=== PATIENT | male | born 1970 | race Caucasian/White ===

== ENCOUNTER 2021-08-13 14:00 | Outpatient (RCR) | payer OTHER, SELFPAY | END 2021-08-18 15:48 | disposition home or self-care (01) | LOC: HO.PT 14:00 | PROVIDERS: PCP Nurse Practitioner Primary Care; Visit Provider Emergency Medicine | DX: R29.898 Other symptoms and signs involving the musculoskeletal system (principal) | CPT/HCPCS: 97110; 97161; 97530; 97535 ==

== ENCOUNTER 2022-02-04 07:28 | Emergency (ER) | payer OTHER, SELFPAY ==
--- NOTE | 2022-02-04 | ECG_ITS ---
Test Reason : cp Blood Pressure : / mmHG Vent. Rate : 073 BPM Atrial Rate : 073 BPM P-R Int : 152 ms QRS Dur : 094 ms QT Int : 370 ms P-R-T Axes : 072 071 048 degrees QTc Int : 407 ms Normal sinus rhythm Normal ECG When compared with ECG of 26-JAN-2010 09:05, No significant change was found Referred By: Generic ED Physician Electronically Signed By:Miguel Mora
--- NOTE | ~2022-02-04 | XR_ITS ---
EXAMINATION: XR CHEST CLINICAL INFORMATION: Chest pain COMPARISON: February 24, 2019 TECHNIQUE: 2 views of the chest were obtained. FINDINGS: No significant abnormality is noted involving the heart, lungs, mediastinum, bony thorax or soft tissues. XR/XR chest 2V IMPRESSION: No acute disease.
[2022-02-04 07:40] VITALS: BP 136/98; PULSE 78; RESP 16; TEMP 36.6; O2SAT 99; BMI 36.0
[2022-02-04 07:52] LABS: MANUAL DIFF FLAG NO
[2022-02-04 07:54] LABS: Basophils Percent Auto 0.3 % (0-2); Eosinophils Absolute Auto 0.1 X10*3/uL (0.0-0.4); Eosinophils Percent Auto 1.2 % (0-4); Hematocrit 39.1 % (42.0-52.0); Hemoglobin 13.2 g/dl (14.0-18.0); Imm Gran Abs Auto 0.02 X10*3/uL (0.00-0.03); Imm Gran Pct Auto 0.3 % (0.0-0.4); Lymphocytes Absolute Auto 1.8 X10*3/uL (1.2-4.9); Lymphocytes Percent Auto 30.8 % (20-40); Mean Corpuscular HGB Conc 33.8 g/dl (31.0-36.0); Mean Corpuscular Hemoglobin 30.4 pg (27.0-33.0); Mean Corpuscular Volume 90.1 fL (80.0-98.0); Mean Platelet Volume 9.4 fL (9.4-12.4); Monocytes Absolute Auto 0.4 X10*3/uL (0.1-1.2); Monocytes Percent Auto 6.3 % (2-11); Neutrophils Absolute Auto 3.5 x10*3/uL (2.0-8.3); Neutrophils Percent Auto 61.1 % (45-73); Platelet Count 267 X10*3/uL (160-400); Red Blood Count 4.34 X10*6/uL (4.60-5.80); Red Cell Distribution Width 12.8 % (11.0-16.0); White Blood Count 5.7 X10*3/uL (4.8-10.8)
[2022-02-04 08:11] LABS: Anion Gap 12 (12-20); Blood Urea Nitrogen 15 mg/dL (9-16); Calcium 9.5 mg/dL (8.4-10.2); Carbon Dioxide 27 mmol/L (22-29); Chloride 104 mmol/L (96-108); Creatinine Clr Calc Pharmacy 88.7; Estimated Glomerular Filt Rate > 60; Glucose Random 107 mg/dL (60-115); Potassium 4.8 mmol/L (3.3-5.1); Sodium 138 mmol/L (135-145)
[2022-02-04 08:18] LABS: Troponin-I High Sensitivity < 3.5 ng/L (<3.5-35.0)
--- NOTE | 2022-02-04 08:22 | ED.ARRPALP ---
HPI - Arrhythmia/Palpitations General Chief Complaint: Arrhythmia/Palpitations Stated Complaint: palpations chest pain Time Seen by Provider: 02/04/22 08:20 Source: patient Mode of arrival: ambulatory Limitations: no limitations History of Present Illness MD complaint: palpitations (chest pain when touching chest) Onset (ago): week(s) (3) Duration: intermittent Severity: mild Context: other (stress with landlord, not related to exertion) Associated symptoms: chest pain and nausea Related Data Previous Rx's Medication Instructions Recorded cyclobenzaprine 10 mg tablet 10 mg PO TID PRN #14 tab 02/04/22 ondansetron 4 mg disintegrating 4 mg PO Q8H PRN #20 tab 02/04/22 tablet Allergies Allergy/AdvReac Type Severity Reaction Status Date / Time Seasonal Allergies Allergy Mild Nasal Verified 02/04/22 08:24 congestion Review of Systems Review of Systems: Constitutional : No Weight loss, No Fever, No Chills ENT/Mouth : No sore throat, No Rhinorrhea Eyes: No Eye Pain, No Swelling Cardiovascular : pos Chest Pain, no SOB, no Dyspnea on Exertion, No Orthopnea, No Edema, pos Palpitations Respiratory : No Cough, No Sputum Gastrointestinal : pos Nausea, No Vomiting, No Diarrhea, No abdominal Pain, No Hematochezia, No Melena Genitourinary : No Dysuria, No Urinary Frequency Musculoskeletal : No joint pain, No Myalgias, No Joint Swelling Skin : No Skin Lesions, No rash Neuro : No Weakness, No Numbness, No Dizziness, No Headache Psych : No Anxiety/Panic, No Depression Heme/Lymph: No Bruising, No Lymphadenopathy Endocrine : No Polyuria, No Polydipsia All other systems reviewed and are negative [facility] Past Medical History Attestation statement: The following information was validated with the patient. Medical History Asthma Bipolar 1 disorder Substance abuse Substance abuse in remission Social History Social History (Updated 02/04/22 @ 08:48 by Diana Pastor DO) Patient Tobacco Use Status: Current someday Tobacco user Use of substances other than those prescribed or required for medical reasons: No Advance Directives: No Advance Directives Information Provided: Yes Physical Exam Vital Signs: Vital Signs: Last Vital Signs Temp 97.9 F 02/04/22 07:40 Pulse 70 02/04/22 08:24 Resp 12 02/04/22 08:24 BP 131/72 02/04/22 08:24 Pulse Ox 97 02/04/22 08:24 BMI result Body Mass Index 36.0 Appearance: Alert. Oriented X3. No acute distress. Eyes: Pupils equal, round and reactive to light. ENT: Pharynx normal. Neck: Normal inspection. Neck supple. CVS: Normal heart rate and rhythm. Pulses normal. Chest: ttp along chest wall reproduces pain Respiratory: No respiratory distress. Breath sounds normal. Abdomen: Soft and nontender. Skin: Skin warm and dry. Normal skin color. Normal skin turgor. Extremities: No lower extremity edema. No calf ttp Neuro: Oriented X 3. No motor deficit. No sensory deficit. Course Course Course Narrative: asymptomatic COVID - unknown start date given this not a candidate for treatment MDM - Arrhythmia/Palpitations MDM Narrative Medical decision making narrative: 51 yo male with hx of asthma and bipolar comes in with atypical chest pain and palpitations x 3 weeks due to stress with landlord. No hypoxia, tachycardia or signs of DVT to suggest PE. Pain is atypical - EKG and trop negative with 3 weeks of symptoms. Chest pain is reproduceable. At this time anticipate DC home with PCP follow up and muscle relaxers Lab Data Result diagrams: 02/04/22 07:49 02/04/22 07:49 Labs: Lab Results 02/04/22 02/04/22 02/04/22 Range/Units 07:49 07:49 07:49 WBC 5.7 (4.8-10.8) X10*3/uL RBC 4.34 L (4.60-5.80) X10*6/uL Hgb 13.2 L (14.0-18.0) g/dl Hct 39.1 L (42.0-52.0) % MCV 90.1 (80.0-98.0) fL MCH 30.4 (27.0-33.0) pg MCHC 33.8 (31.0-36.0) g/dl RDW 12.8 (11.0-16.0) % Plt Count 267 (160-400) X10*3/uL MPV 9.4 (9.4-12.4) fL Immature Gran % (Auto) 0.3 (0.0-0.4) % Neut % (Auto) 61.1 (45-73) % Lymph % (Auto) 30.8 (20-40) % [place] % (Auto) 6.3 (2-11) % Eos % (Auto) 1.2 (0-4) % Baso % (Auto) 0.3 (0-2) % Lymph # (Auto) 1.8 (1.2-4.9) X10*3/uL [place] # (Auto) 0.4 (0.1-1.2) X10*3/uL Eos # (Auto) 0.1 (0.0-0.4) X10*3/uL Baso # (Auto) 0.0 (0.0-0.2) X10*3/uL Abs Immat Gran (auto) 0.02 (0.00-0.03) X10*3/uL Absolute Neuts (auto) 3.5 (2.0-8.3) x10*3/uL Absolute Nucleated RBC 0.000 (0.0-0.012) X10*3/uL Nucleated RBC % (auto) 0.0 (0.0-0.2) /100WBC Sodium 138 (135-145) mmol/L Potassium 4.8 (3.3-5.1) mmol/L Chloride 104 (96-108) mmol/L Carbon Dioxide 27 (22-29) mmol/L Anion Gap 12 (12-20) BUN 15 (9-16) mg/dL Creatinine 1.05 (0.5-1.4) mg/dL Estim Creat Clear Calc 88.7 Estimated GFR > 60 Random Glucose 107 (60-115) mg/dL Calcium 9.5 (8.4-10.2) mg/dL Troponin I High Sens < 3.5 (<3.5-35.0) ng/L COVID-19 (RADHA) (Negative) COVID-19 Clin Com 02/04/22 Range/Units 08:45 WBC (4.8-10.8) X10*3/uL RBC (4.60-5.80) X10*6/uL Hgb (14.0-18.0) g/dl Hct (42.0-52.0) % MCV (80.0-98.0) fL MCH (27.0-33.0) pg MCHC (31.0-36.0) g/dl RDW (11.0-16.0) % Plt Count (160-400) X10*3/uL MPV (9.4-12.4) fL Immature Gran % (Auto) (0.0-0.4) % Neut % (Auto) (45-73) % Lymph % (Auto) (20-40) % [place] % (Auto) (2-11) % Eos % (Auto) (0-4) % Baso % (Auto) (0-2) % Lymph # (Auto) (1.2-4.9) X10*3/uL [place] # (Auto) (0.1-1.2) X10*3/uL Eos # (Auto) (0.0-0.4) X10*3/uL Baso # (Auto) (0.0-0.2) X10*3/uL Abs Immat Gran (auto) (0.00-0.03) X10*3/uL Absolute Neuts (auto) (2.0-8.3) x10*3/uL Absolute Nucleated RBC (0.0-0.012) X10*3/uL Nucleated RBC % (auto) (0.0-0.2) /100WBC Sodium (135-145) mmol/L Potassium (3.3-5.1) mmol/L Chloride (96-108) mmol/L Carbon Dioxide (22-29) mmol/L Anion Gap (12-20) BUN (9-16) mg/dL Creatinine (0.5-1.4) mg/dL Estim Creat Clear Calc Estimated GFR Random Glucose (60-115) mg/dL Calcium (8.4-10.2) mg/dL Troponin I High Sens (<3.5-35.0) ng/L COVID-19 (RADHA) Positive A (Negative) COVID-19 Clin Com See Note ECG Data Attestation: I personally reviewed and interpreted this ECG as follows: ECG interpretation date: 02/04/22 ECG interpretation time: 08:23 Interpretation: Rate: 73 Rhythm: NSR [place]: normal Normal P waves. Normal PAYAL. Normal QRS complex. ST T wave : normal no ANSHU qTC: normal prior studies: no acute ischemia The study has been interpreted contemporaneously by me. . Discharge Plan Discharge Clinical Impression: Palpitations, Atypical chest pain, COVID-19 Patient Disposition: Home, Self-Care Instructions: Chest Pain (ED), Heart Palpitations (ED), COVID-19 (Coronavirus Disease 2019) (ED) Additional Instructions: return to ED for any worsening symptoms or concerns you tested positive for COVID today but are asymptomatic, no covid pneumonia on chest xray Prescriptions: New cyclobenzaprine 10 mg tablet 10 mg PO TID PRN (Reason: muscle spasm) Qty: 14 0RF ondansetron 4 mg tablet,disintegrating 4 mg PO Q8H PRN (Reason: nausea and vomiting) Qty: 20 0RF Referrals: Freda Lane, [employer] [Primary Care Provider] - 2 days (if not better)
[2022-02-04 08:24] VITALS: BP 131/72; PULSE 70; RESP 12; O2SAT 97
[2022-02-04] MEDS: Cyclobenzaprine HCl 10 MG TABLET PO (08:49)
[2022-02-04 09:08] LABS: COVID-19 Test Positive (Negative); IDNOW Serial# 16C4AD1C
--- NOTE | 2022-02-04 09:12 | MHC.CM.ED ---
Received notification from registration that patient interested in completing HCP. HCP completed, signed and witnessed. Original given to patient. Copy placed in chart. Continue to monitor for d/c needs.
[2022-02-04 09:40] VITALS: BP 144/71; PULSE 76; RESP 18; O2SAT 98
--- NOTE | 2022-02-04 09:41 | PC.NURSE ---
nad, skin wpd, sr on monitor, denies any symptoms or pain at this timne. no sob
== END 2022-02-04 09:43 | disposition home or self-care (01) ==
PROVIDERS: Emergency Provider Emergency Medicine; PCP Nurse Practitioner Primary Care
DX: U07.1 COVID-19 (principal); R07.89 Other chest pain; R00.2 Palpitations; J45.909 Unspecified asthma, uncomplicated
CPT/HCPCS: 36415; 71046; 80048; 84484; 85025; 87635; 93005; 99283; 99284

== ENCOUNTER 2023-09-14 11:03 | Outpatient (REF) | payer OTHER, SELFPAY ==
--- NOTE | ~2023-09-14 | XR_ITS ---
EXAMINATION: XR LUMBOSACRAL SPINE CLINICAL INFORMATION: Atraumatic left low back pain. COMPARISON: None available. TECHNIQUE: Three views of the lumbosacral spine. FINDINGS: No evidence of acute compression deformity or traumatic subluxation. Mild intervertebral disc height loss and facet arthropathy at L5-S1. SI joints are symmetric. No significant paraspinal soft tissue abnormality. XR/XR lumbar spine 2-3V IMPRESSION: 1. No acute compression deformity or malalignment. 2. Mild lumbar spondylosis at L5-S1.
--- NOTE | ~2023-09-14 | XR_ITS ---
EXAMINATION: XR ELBOW, LEFT CLINICAL INFORMATION: Pain. COMPARISON: None available. TECHNIQUE: AP, lateral, and oblique views of the left elbow. FINDINGS: No acute fracture or subluxation. Prominent multicompartment chronic appearing bony productive changes. No osseous erosions. No chondrocalcinosis. No joint effusion. XR/XR elbow LT min 3V IMPRESSION: 1. No acute fracture or subluxation. 2. Prominent multicompartment chronic appearing bony productive changes that could be seen with osteoarthritis.
[2023-09-14 14:10] LABS: Appearance Urine Clear; Color Urine Yellow; Glucose Urine UA Negative (Negative); Leukocyte Esterase Urine Negative (Negative); Nitrite Urine Negative (Negative); Specific Gravity - Urine 1.025 (1.005-1.025); UMIC TRIGGER UA YES; Urine Blood Small (1+) (Negative); Urine Ketones Trace mg/dL (Negative); Urine Protein 100 (2+) mg/dL (Neg-Trace)
[2023-09-14 14:16] LABS: Bacteria Urine None Seen (None Seen); Hyaline Casts Urine 0-2 /LPF (0-2); Squamous Epithelial Cell Urine 0-2 /HPF (0-2); WBC Urine 0-5 /HPF (0-5)
[2023-09-14 14:40] LABS: Creatinine Urine 262.13 mg/dL
[2023-09-14 15:01] LABS: Anion Gap 15 (12-20); Blood Urea Nitrogen 16 mg/dL (9-16); Calcium 9.7 mg/dL (8.4-10.2); Carbon Dioxide 26 mmol/L (22-29); Chloride 103 mmol/L (96-108); Estimated Glomerular Filt Rate > 60; Glucose Random 98 mg/dL (60-115); Potassium 4.7 mmol/L (3.3-5.1); Sodium 139 mmol/L (135-145)
[2023-09-14 15:15] LABS: Microalbum/Creatinine Ratio Ur 185.7 ug/mg cr (<30)
== END 2023-09-14 11:04 | disposition home or self-care (01) ==
LOC: HO.HHCL 11:03
PROVIDERS: Visit Provider Nurse Practitioner Primary Care
DX: I10 Essential (primary) hypertension (principal); R20.0 Anesthesia of skin; M25.522 Pain in left elbow; M54.50 Low back pain, unspecified
CPT/HCPCS: 36415; 72100; 73080; 80048; 81001; 82043; 82570

== ENCOUNTER 2023-09-15 14:32 | Outpatient (REF) | payer OTHER, SELFPAY ==
[2023-09-15 17:16] LABS: Appearance Urine Turbid; Color Urine Yellow; Glucose Urine UA Negative (Negative); Leukocyte Esterase Urine Negative (Negative); Nitrite Urine Negative (Negative); Specific Gravity - Urine >= 1.030 (1.005-1.025); UMIC TRIGGER UA YES; Urine Blood Negative (Negative); Urine Ketones Negative (Negative); Urine Protein 100 (2+) mg/dL (Neg-Trace)
[2023-09-15 17:20] LABS: Bacteria Urine None Seen (None Seen); Hyaline Casts Urine 0-2 /LPF (0-2); Squamous Epithelial Cell Urine 0-2 /HPF (0-2); WBC Urine 0-5 /HPF (0-5)
== END 2023-09-15 14:33 | disposition home or self-care (01) ==
LOC: HO.HHCL 14:32
PROVIDERS: Visit Provider Nurse Practitioner Primary Care
DX: R31.9 Hematuria, unspecified (principal)
CPT/HCPCS: 81001

== ENCOUNTER 2024-01-12 11:34 | Outpatient (REF) | payer OTHER, SELFPAY | END 2024-01-12 11:35 | disposition home or self-care (01) | LOC: HO.HHCL 11:34 | PROVIDERS: Visit Provider Nurse Practitioner Primary Care | DX: R31.9 Hematuria, unspecified (principal) | CPT/HCPCS: 87086 ==

== ENCOUNTER 2024-03-10 11:13 | Outpatient (REF) | payer OTHER, SELFPAY ==
[2024-03-10 13:02] LABS: MANUAL DIFF FLAG NO
[2024-03-10 13:08] LABS: Basophils Percent Auto 0.5 % (0-2); Eosinophils Absolute Auto 0.1 X10*3/uL (0.0-0.4); Eosinophils Percent Auto 1.3 % (0-4); Hematocrit 37.1 % (42.0-52.0); Hemoglobin 12.6 g/dl (14.0-18.0); Imm Gran Abs Auto 0.02 X10*3/uL (0.00-0.03); Imm Gran Pct Auto 0.3 % (0.0-0.4); Lymphocytes Absolute Auto 2.1 X10*3/uL (1.2-4.9); Lymphocytes Percent Auto 33.4 % (20-40); Mean Corpuscular Hemoglobin 30.8 pg (27.0-33.0); Mean Corpuscular Volume 90.7 fL (80.0-98.0); Mean Platelet Volume 10.2 fL (9.4-12.4); Monocytes Absolute Auto 0.3 X10*3/uL (0.1-1.2); Monocytes Percent Auto 5.2 % (2-11); Neutrophils Absolute Auto 3.8 x10*3/uL (2.0-8.3); Neutrophils Percent Auto 59.3 % (45-73); Platelet Count 276 X10*3/uL (160-400); Red Blood Count 4.09 X10*6/uL (4.60-5.80); Red Cell Distribution Width 13.3 % (11.0-16.0); White Blood Count 6.4 X10*3/uL (4.8-10.8)
[2024-03-10 13:17] LABS: Appearance Urine Clear; Color Urine Yellow; Glucose Urine UA Negative (Negative); Leukocyte Esterase Urine Negative (Negative); Nitrite Urine Negative (Negative); PH 5.5 (5.0-9.0); Specific Gravity - Urine 1.025 (1.005-1.025); UMIC TRIGGER UA YES; Urine Blood Negative (Negative); Urine Ketones Negative (Negative); Urine Protein 30 (1+) mg/dL (Neg-Trace)
[2024-03-10 13:26] LABS: Bacteria Urine None Seen (None Seen); Hyaline Casts Urine 0-2 /LPF (0-2); RBC Urine 0-2 /HPF (0-2); Squamous Epithelial Cell Urine 0-2 /HPF (0-2); WBC Urine 0-5 /HPF (0-5)
[2024-03-10 13:34] LABS: Cholesterol 187 mg/dL (<200); HDL Cholesterol 59 mg/dL (>40); LDL Cholesterol Calculated 109 mg/dL (<100); Triglycerides 95 mg/dL (<150)
[2024-03-13 12:48] LABS: HCV Log PCR <1.18 NOT DETECTED Log IU/mL (NOT DETECTED); HepC Viral Load <15 NOT DETECTED IU/mL (NOT DETECTED)
== END 2024-03-10 11:14 | disposition home or self-care (01) ==
LOC: HO.HHCL 11:13
PROVIDERS: Visit Provider Nurse Practitioner Primary Care
DX: Z00.00 Encounter for general adult medical examination without abnormal findings (principal); E78.00 Pure hypercholesterolemia, unspecified; R31.9 Hematuria, unspecified; Z86.19 Personal history of other infectious and parasitic diseases
CPT/HCPCS: 36415; 80061; 81001; 85025; 87522

== ENCOUNTER 2024-03-24 11:45 | Emergency (ER) | payer OTHER, SELFPAY ==
[2024-03-24 12:05] VITALS: BP 109/60; PULSE 70; RESP 18; TEMP 36.6; O2SAT 98; BMI 33.6
--- NOTE | 2024-03-24 12:05 | ED.GENADULT ---
HPI - General Adult General Chief complaint: General Medical Stated complaint: kidney issues Source: patient Mode of arrival: ambulatory Limitations: no limitations History of Present Illness ED Provider: Yanna Waite PA-C HPI narrative: Patient is a 54 year old assigned male at with no reported medical history presenting to the emergency department today with left flank pain. Patient states that he has been having left flank pain over the last 5 months that he has gotten multiple lab draws for but the place he gets these done keep misplacing them. Patient denies any dizziness, lightheadedness, abdominal pain, nausea, vomiting, fever, chills, blurry vision, double vision, loss of vision, chest pain, difficulty breathing, shortness of breath, back pain, night sweats, pain with urination, increased urinary frequency, increased urinary urgency, blood in his urine or stool, syncope or a near syncopal episode, recent trauma or falls, bowel incontinence, bladder incontinence, or any other complaints at this time. Onset (ago): month(s) (5) Location: left (flank) Radiation: non-radiation Severity: mild Severity scale (1-10): 3 Relieving factors: none Exacerbating factors: none Associated symptoms: denies other symptoms Treatments prior to arrival: none Related Data Previous Rx's ?Medication ?Instructions ?Recorded cyclobenzaprine 10 mg tablet 10 mg PO TID PRN muscle spasm #14 02/04/22 tabs ondansetron 4 mg disintegrating 4 mg PO Q8H PRN nausea and 02/04/22 tablet vomiting #20 tabs Allergies Allergy/AdvReac Type Severity Reaction Status Date / Time Seasonal Allergies Allergy Mild Nasal Verified 03/24/24 12:05 congestion Review of Systems Constitutional: Constitutional: Reports no additional constitutional complaints, Denies chills, Denies fever(s) and Denies night sweats Eyes: Eyes: Reports no additional eye complaints, Denies blurry vision, Denies change in vision, Denies diplopia, Denies eye discharge, Denies loss of vision and Denies eye pain ENT: Denies dizziness Cardiovascular: Cardiovascular: Reports no additional cardiovascular complaints, Denies chest pain, Denies lightheadedness, Denies Loss of Consciousness and Denies dyspnea Respiratory: Respiratory: Reports no additional respiratory complaints and Denies dyspnea Gastrointestinal: Gastrointestinal: Reports no additional gastrointestinal complaints, Denies abdominal pain, Denies melena, Denies hematochezia, Denies change in bowel habits and Denies change in stool character Genitourinary: Genitourinary: Reports no additional male genitourinary complaints, Denies hematuria, Denies oliguria, Denies difficulty urinating, Denies dysuria, Reports flank pain (left), Denies urinary frequency, Denies urinary hesitancy, Denies urinary incontinence and Denies urinary urgency Musculoskeletal: Musculoskeletal: Reports no additional musculoskeletal complaints, Denies numbness and Denies tingling Neurologic: Denies dizziness, Denies loss of vision, Denies numbness and Denies tingling Psychiatric: Psychiatric: Reports no additional psychiatric complaints Endocrine: Endocrine: Reports no additional endocrine complaints Hematologic/Lymphatic: Hematologic/Lymphatic: Reports no additional hematologic/lymphatic complaints Allergic/Immunologic: Allergic/Immunologic: Reports no additional allergic/immunologic complaints PMFSH Past Medical History Attestation statement: The following information was validated with the patient. Source: old records reviewed and nursing notes reviewed Medical History Substance abuse in remission Substance abuse Bipolar 1 disorder Asthma Social History Social History Patient Tobacco Use Status: Current someday Tobacco user Advance Directives: Yes Advance Directives on File: Yes Advance Directives Date on File: 02/04/22 Do you have a plan to hurt others: No Plan Physical Exam ED Vital Signs: Vital Signs - 24 hr 03/24/24 12:05 Temperature 97.9 F Pulse Rate 70 Respiratory Rate 18 Blood Pressure 109/60 Pulse Oximetry 98 Oxygen Delivery Method Room Air BMI result Body Mass Index 33.6 Const General: cooperative, no acute distress, alert and awake Nutritional Appearance: well nourished Orientation/consciousness: patient oriented x3 Limitations: no limitations HENMT Head: Yes normal to inspection and Yes atraumatic Ears: hearing grossly normal bilaterally and external ears normal General nose exam: Normal external nose present, no nasal discharge noted and no epistaxis Face and sinus: Yes normal facial exam, No abrasion and No laceration Mouth: Normal oral and palatal mucosa present, no drooling and no muffled voice Eyes General: appearance normal, both eyes and all related structures Periorbital: periorbital findings normal Eyelids: Yes eyelids normal Conjunctivae: conjunctivae normal Pupils: Equal, round and reactive pupils present EOM: EOMs intact bilaterally Neck Neck: Yes normal visual inspection, Yes full ROM and Yes no lymphadenopathy Chest Chest palpation & inspection: normal inspection of the chest Resp Effort & Inspection: normal respiratory effort and able to speak in complete sentences GI Inspection: Yes normal to inspection Neuro General: patient oriented x3 and moves all extremities Cranial nerves: Yes Equal, round and reactive pupils present Cognition (Neuro): normal cognition Motor exam (neuro): 5/5 motor strength present throughout Sensory Exam: Normal double simultaneous stimulation for sensation Coordination: [id number]-wl-[id number] test normal Extrem General: Yes normal to inspection, Yes full ROM and Yes capillary refill normal Psych Appearance: grossly normal Mental Status: mental status grossly normal Affect: normal affect Attitude: cooperative Thought process: Normal thought process present Thought content: Normal thought content present Insight: Good insight present (Psych) Course Course Course Narrative: RME performed by Yanna Waite PA-C. Patient is a 54 year old assigned male at presenting to the emergency department with left kidney pain. Patient states that he is having kidney issues ever since being on a medication to stop smoking (not chantix). Detailed physical exam and review of systems are deferred to the life science research assistant. Labs ordered. Patient placed back in the waiting room pending room availability and results. Medical Decision Making Medical Decision Making MDM Narrative: Patient is a 54 year old assigned male at with no reported medical history presenting to the emergency department today with left flank pain. Patient's limited physical exam performed in triage was unremarkable. Patient's blood work was unremarkable. Patient left the department without completing treatment. Patient left the department before myself or any of the other emergency department clinicians could explain to or review with the patient; physical exam findings, test results, need or lack there of for additional testing, need or lack there of for a procedure to be performed, need or lack there of for hospital admission / transfer, need or lack there of for prescription medication, treatment options, or a treatment plan. Differential Diagnosis Differential Diagnoses: The differential diagnosis associated with the presentation includes Kidney stone Flank pain Admission/Observation Consideration of admission/observation: Escalation of care including admission/observation considered Patient would have been admitted to the hospital had he completed his work up and it had any findings where hospital admission was appropriate, his clinical presentation warranted hospital admission, had myself or any other emergency college or university department head had the ability to discuss need or lack there of for hospital admission, and the patient hadn't left the department without completing treatment. Lab Data [facility] Lab Attestation statement: I reviewed the patient's lab results. My interpretation of these results are in the [facility] Rationale portion of this note. 03/24/24 12:47 03/24/24 12:47 Labs: Lab Results 03/24/24 Range/Units 12:47 WBC 8.9 (4.8-10.8) X10*3/uL RBC 4.01 L (4.60-5.80) X10*6/uL Hgb 12.8 L (14.0-18.0) g/dl Hct 35.9 L (42.0-52.0) % MCV 89.5 (80.0-98.0) fL MCH 31.9 (27.0-33.0) pg MCHC 35.7 (31.0-36.0) g/dl RDW 13.3 (11.0-16.0) % Plt Count 246 (160-400) X10*3/uL MPV 9.4 (9.4-12.4) fL Immature Gran % (Auto) 0.2 (0.0-0.4) % Neut % (Auto) 56.7 (45-73) % Lymph % (Auto) 35.1 (20-40) % [place] % (Auto) 6.4 (2-11) % Eos % (Auto) 1.1 (0-4) % Baso % (Auto) 0.5 (0-2) % Lymph # (Auto) 3.1 (1.2-4.9) X10*3/uL [place] # (Auto) 0.6 (0.1-1.2) X10*3/uL Eos # (Auto) 0.1 (0.0-0.4) X10*3/uL Baso # (Auto) 0.0 (0.0-0.2) X10*3/uL Abs Immat Gran (auto) 0.02 (0.00-0.03) X10*3/uL Absolute Neuts (auto) 5.0 (2.0-8.3) x10*3/uL Absolute Nucleated RBC 0.000 (0.0-0.012) X10*3/uL Nucleated RBC % (auto) 0.0 (0.0-0.2) /100WBC Sodium 139 (135-145) mmol/L Potassium 4.4 (3.3-5.1) mmol/L Chloride 107 (96-108) mmol/L Carbon Dioxide 26 (22-29) mmol/L Anion Gap 10 L (12-20) BUN 20 H (9-16) mg/dL Creatinine 0.94 (0.5-1.4) mg/dL Estim Creat Clear Calc 89.2 Estimated GFR > 60 Random Glucose 91 (60-115) mg/dL Calcium 9.4 (8.4-10.2) mg/dL Magnesium 1.9 (1.6-2.6) mg/dL Total Bilirubin 0.4 (0.0-1.0) mg/dL AST 31 (5-37) U/L ALT 51 H (0-40) U/L Alkaline Phosphatase 56 (39-117) U/L Total Protein 7.0 (6.5-8.0) g/dL Albumin 4.4 (3.5-5.0) g/dL Urine Color Yellow Urine Appearance Clear Urine pH 5.5 (5.0-9.0) Ur Specific [place] 1.025 (1.005-1.025) Urine Protein 30 (1+) H (Neg-Trace) mg/dL Urine Glucose (UA) Negative (Negative) mg/dL Urine Ketones Trace (Negative) mg/dL Urine Blood Negative (Negative) Urine Nitrite Negative (Negative) Ur Leukocyte Esterase Negative (Negative) Urine RBC 0-2 (0-2) /HPF Urine WBC 0-5 (0-5) /HPF Ur Squamous Epith Cells 0-2 (0-2) /HPF Urine Bacteria None Seen (None Seen) Hyaline Casts 0-2 (0-2) /LPF Discharge Plan Discharge Clinical Impression: Acute flank pain Patient Disposition: Left W/O Completing Treatment Prescriptions: No Action cyclobenzaprine 10 mg tablet 10 mg PO TID PRN (Reason: muscle spasm) Qty: 14 0RF ondansetron 4 mg tablet,disintegrating 4 mg PO Q8H PRN (Reason: nausea and vomiting) Qty: 20 0RF Discharge Date/Time: 03/24/24 13:49
[2024-03-24 12:51] LABS: MANUAL DIFF FLAG NO
[2024-03-24 12:52] LABS: Basophils Percent Auto 0.5 % (0-2); Eosinophils Absolute Auto 0.1 X10*3/uL (0.0-0.4); Eosinophils Percent Auto 1.1 % (0-4); Hematocrit 35.9 % (42.0-52.0); Hemoglobin 12.8 g/dl (14.0-18.0); Imm Gran Abs Auto 0.02 X10*3/uL (0.00-0.03); Imm Gran Pct Auto 0.2 % (0.0-0.4); Lymphocytes Absolute Auto 3.1 X10*3/uL (1.2-4.9); Lymphocytes Percent Auto 35.1 % (20-40); Mean Corpuscular HGB Conc 35.7 g/dl (31.0-36.0); Mean Corpuscular Hemoglobin 31.9 pg (27.0-33.0); Mean Corpuscular Volume 89.5 fL (80.0-98.0); Mean Platelet Volume 9.4 fL (9.4-12.4); Monocytes Absolute Auto 0.6 X10*3/uL (0.1-1.2); Monocytes Percent Auto 6.4 % (2-11); Neutrophils Percent Auto 56.7 % (45-73); Platelet Count 246 X10*3/uL (160-400); Red Blood Count 4.01 X10*6/uL (4.60-5.80); Red Cell Distribution Width 13.3 % (11.0-16.0); White Blood Count 8.9 X10*3/uL (4.8-10.8)
[2024-03-24 12:56] LABS: Appearance Urine Clear; Color Urine Yellow; Glucose Urine UA Negative (Negative); Leukocyte Esterase Urine Negative (Negative); Nitrite Urine Negative (Negative); PH 5.5 (5.0-9.0); Specific Gravity - Urine 1.025 (1.005-1.025); UMIC TRIGGER UACC YES; Urine Blood Negative (Negative); Urine Ketones Trace mg/dL (Negative); Urine Protein 30 (1+) mg/dL (Neg-Trace)
[2024-03-24 12:59] LABS: Bacteria Urine None Seen (None Seen); Hyaline Casts Urine 0-2 /LPF (0-2); RBC Urine 0-2 /HPF (0-2); Squamous Epithelial Cell Urine 0-2 /HPF (0-2); WBC Urine 0-5 /HPF (0-5)
[2024-03-24 13:07] LABS: Alanine Aminotransferase 51 U/L (0-40); Albumin Level 4.4 g/dL (3.5-5.0); Alkaline Phosphatase 56 U/L (39-117); Anion Gap 10 (12-20); Aspartate Amino Transferase 31 U/L (5-37); Bilirubin Total 0.4 mg/dL (0.0-1.0); Blood Urea Nitrogen 20 mg/dL (9-16); Calcium 9.4 mg/dL (8.4-10.2); Carbon Dioxide 26 mmol/L (22-29); Chloride 107 mmol/L (96-108); Creatinine Clr Calc Pharmacy 89.2; Estimated Glomerular Filt Rate > 60; Glucose Random 91 mg/dL (60-115); Magnesium 1.9 mg/dL (1.6-2.6); Potassium 4.4 mmol/L (3.3-5.1); Sodium 139 mmol/L (135-145)
--- NOTE | 2024-03-24 13:49 | PC.NURSE ---
Called multiple times- no answer-
--- OUTSIDE RECORDS SUMMARY | 2024-03-30 06:44 | XMS_ITS | Continuity of Care Document ---
Author Organization [facility] Address [address] [place] [id number]- Care Team Providers Care Machine Adjuster Helper Name Role Phone Freda Lane NP Primary Care Physician [phone] Encounter [facility] Date(s): 01/06/24 - 02/05/24 [facility] [address] [place] [id number] Attending Physician: Molly Trevino Admitting Physician: Molly Trevino Referring Physician: Molly Trevino Medications Albuterol (Eqv-ProAir HFA) 90 mcg/inh inhalation aerosol 2 puffs, Inhalation, Every 6 hours, 0 Refills, Maintenance, 01/06/24 13:09:00 EDT, Partial fill upon patient request if the prescription is for a schedule II opioid drug. Start Date: 01/06/24 Status: Ordered Golytely - oral powder for reconstitution See Instructions, Per instructions from GI., # 4,000 mL, 0 Refills, Maintenance, 01/06/24 13:26:00 EDT, [facility]/pharmacy #[id number], Partial fill upon patient request if the prescription is for a schedule II opioid drug., Per instructions from GI. Start Date: 01/06/24 Status: Ordered Loratadine By Mouth, Daily, Refills 0, Maintenance, 01/06/24 13:09:00 EDT, Partial fill upon patient request if the prescription is for a schedule II opioid drug. Start Date: 01/06/24 Status: Ordered Suboxone 8 mg-2 mg sublingual film 2 film, Sublingual, Daily, 0 Refills, Maintenance, 01/06/24 13:09:00 EDT, Partial fill upon patientrequest if the prescription is for a schedule II opioid drug. Start Date: 01/06/24 Status: Ordered Vitamin B12 50 mcg oral tablet 1 tablet = 50 mcg, By Mouth, Daily, 0 Refills, Maintenance, 01/06/24 13:09:00 EDT, Partial fill upon patient request if the prescription is for a schedule II opioid drug. Start Date: 01/06/24 Status: Ordered Patient Care team information Care Team Personnel Name: Freda Laen NP Position: [facility] Outreach Member Role: PCP Address: Address: [address] [place] [address]- Care Team Related Persons Name: KM SALTER Address: home [address] [place] [address]
== END 2024-03-24 13:49 | disposition left against medical advice (07) ==
PROVIDERS: Physician Assistant Medical; Emergency Provider Emergency Medicine; PCP Nurse Practitioner Primary Care
DX: R10.9 Unspecified abdominal pain (principal); Z79.899 Other long term (current) drug therapy
CPT/HCPCS: 36415; 80053; 81001; 83735; 85025; 99282; 99283

== ENCOUNTER 2024-05-01 11:03 | Outpatient (REF) | payer OTHER, SELFPAY ==
[2024-05-01 13:20] LABS: MANUAL DIFF FLAG NO
[2024-05-01 13:48] LABS: Basophils Percent Auto 0.5 % (0-2); Eosinophils Absolute Auto 0.1 X10*3/uL (0.0-0.4); Hematocrit 37.6 % (42.0-52.0); Hemoglobin 12.8 g/dl (14.0-18.0); Imm Gran Abs Auto 0.02 X10*3/uL (0.00-0.03); Imm Gran Pct Auto 0.3 % (0.0-0.4); Immature Retic Fraction 12.2 % (2.3-13.4); Lymphocytes Absolute Auto 2.2 X10*3/uL (1.2-4.9); Lymphocytes Percent Auto 35.2 % (20-40); Monocytes Absolute Auto 0.3 X10*3/uL (0.1-1.2); Neutrophils Absolute Auto 3.6 x10*3/uL (2.0-8.3); Platelet Count 268 X10*3/uL (160-400); Red Blood Count 4.13 X10*6/uL (4.60-5.80); Red Cell Distribution Width 12.9 % (11.0-16.0); Retic HGB Equivalent 34.9 pg (30.0-35.0); Reticulocyte Percent 1.4 % (0.5-1.8); Reticulocytes Absolute 0.057 X10*6/uL (0.026-0.095); White Blood Count 6.2 X10*3/uL (4.8-10.8)
[2024-05-01 14:32] LABS: Erythrocyte Sedimentation Rate 5 MM/HR (0-15)
[2024-05-01 14:36] LABS: Alanine Aminotransferase 37 U/L (0-40); Albumin Level 4.5 g/dL (3.5-5.0); Alkaline Phosphatase 47 U/L (39-117); Aspartate Amino Transferase 27 U/L (5-37); Bilirubin Direct 0.2 mg/dL (0.0-0.5); Bilirubin Total 0.4 mg/dL (0.0-1.0); C Reactive Protein 0.27 mg/dL (< or = 0.50); Ferritin 270 ng/mL (20-250); Iron 119 mcg/dL (45-160); Percent Iron Saturation 46 % (15-50); Total Iron Binding Capacity 257 mcg/dL (228-428); Total Protein 7.1 g/dL (6.5-8.0); Unsaturated Iron Binding 138 ug/dL
[2024-05-02 10:29] LABS: Transferrin 227 mg/dL (188-341)
== END 2024-05-01 11:04 | disposition home or self-care (01) ==
LOC: HO.HHCL 11:03
PROVIDERS: Visit Provider Nurse Practitioner Primary Care
DX: D64.9 Anemia, unspecified (principal)
CPT/HCPCS: 36415; 80076; 82728; 83540; 84466; 85025; 85045; 85652; 86140

== ENCOUNTER 2025-04-05 11:23 | Outpatient (REF) | payer OTHER, SELFPAY ==
--- OUTSIDE RECORDS SUMMARY | 2025-04-05 12:11 | XMS_ITS | Encounter Summary ---
Author Organization [employer] Address [address] [facility] 7t [place] [address] Care Team Providers Care Mailroom Messenger Name Role Phone Freda Lane Primary Care Provider [phone] Reason for Visit * Reason Comments Med Refill Encounter Details Date Type Department Care Team ([facility] st Contact Info) Description 09/23/2023 Refill [facility] CHC MED & PEDS [address] [place], [place] [phone] Latanya Holder MD 230 [place] [address] Uncomplicated opioid dependence (CMS/HCC) Social History Tobacco Use Types Packs/Day Years Used Date Smoking Tobacco: Some Days Cigarettes Cigars Smokeless Tobacco: Never Alcohol Use Standard Drinks/Week Comments Not Currently 0 (1 standard drink = 0.6 oz pur e alcohol) Housing Stability Answer Date Recorded What is your housing situation today? I have hector healy 08/17/[address] you li ve. Do you have problems with any of the following? None of the above 08/17/2023 Food Insecurity Answer Date Recorded Within the past 12 months, y ou worried that your food would run out before you got money to buy more: Never True 08/17/2023 Within the past 12 months,th e food you bought just didn't last and you didn't have enough money to get more: Never True Transportation Answer Date Recorded In the past 12 months, has l ack of transportation kept you from medical appts, meetings, work or from getting things needed for daily living? No 08/17/2023 Utilities Answer Date Recorded In the past 12 months, has t he electric, gas, oil or water company threatened to shut off services in your home? No 08/17/2023 Depression Answer Date Recorded Patient Health Questionnaire-2 Score 0 08/17/2023 Sex and Gender Information Value Date Recorded Sex Assigned at Male 08/03/2022 10:21 AM EDT Legal Sex Male 10:21 AM EDT Gender Identity Male 08/03/2022 10:21 AM EDT Sexual Orientation Straight 08/03/2022 10 :21 AM EDT documented as of this encounter Plan of Treatment Upcoming Encounters Date Type Department Care Team (Late st Contact Info) Description 06/28/2025 1:30 PM EDT Clinical Support [facility] MEDICINE 230 [place] [address] Bryan Noland RN [address] [place] [address] documented as of this encounter Visit Diagnoses Diagnosis Uncomplicated opioid dependence (CMS/HCC) documented in this encounter Care Teams Mailroom Messenger Relationship Specialty Start Date End Date Freda Lane ANP [address] [place] [address] PCP - General Family Medicine 06/03/20 documented as of this encounter
--- OUTSIDE RECORDS SUMMARY | 2025-04-05 12:11 | XMS_ITS | Clinical Summary ---
Author Organization [facility], Address [address] [place] [address] [place] [address] Phone Care Team Providers Care Commercial Lender Name Role Phone Freda Lane NP Primary Care Provider [phone] Social History Tobacco Use Types Packs/Day Years Used Date Smoking Tobacco: Never Assessed Sex and Gender Information Value Date Recorded Sex Assigned at Not on file Legal Sex Male 9:32 AM EST Gender Identity Not on file Sexual Orientation Not on file Plan of Treatment Health Maintenance Due Date Last Done Comments Hepatitis B Vaccine (1 of 3 - 19+ 3-dose series) 03/03 Colorectal Cancer Screening: Annual FOBT 2018 Colorectal Cancer Screening: Colonoscopy 2018 Colorectal Cancer Screening: Sigmoidoscopy 2018 Pneumococcal Vaccine: 50+ Years (1 of 1 - PCV) 019 Influenza Vaccine (#1) 2025 Insurance ., [address] [place] [address] [facility] One Care Dual SNP ([id number]) [place] [id number] Care Teams Commercial Lender Relationship Specialty Start Date End Date Freda Lane NP PCP - General Nurse Practitioner 10/13/23
[2025-04-05 13:14] LABS: MANUAL DIFF FLAG NO
[2025-04-05 13:29] LABS: Hematocrit 38.6 % (42.0-52.0); Hemoglobin 13.4 g/dl (14.0-18.0); Imm Gran Abs Auto 0.02 X10*3/uL (0.00-0.03); Imm Gran Pct Auto 0.3 % (0.0-0.4); Lymphocytes Absolute Auto 1.8 X10*3/uL (1.2-4.9); Mean Corpuscular HGB Conc 34.7 g/dl (31.0-36.0); Mean Corpuscular Hemoglobin 31.2 pg (27.0-33.0); Mean Corpuscular Volume 89.8 fL (80.0-98.0); NRBC Abs Auto 0.000 X10*3/uL (0.0-0.012); NRBC Pct Auto 0.0 /100WBC (0.0-0.2); Platelet Count 275 X10*3/uL (160-400); Red Blood Count 4.30 X10*6/uL (4.60-5.80); White Blood Count 7.9 X10*3/uL (4.8-10.8)
[2025-04-05 13:59] LABS: Alanine Aminotransferase 31 U/L (0-40); Albumin Level 4.7 g/dL (3.5-5.0); Alkaline Phosphatase 56 U/L (39-117); Anion Gap 11 (12-20); Aspartate Amino Transferase 38 U/L (5-37); Blood Urea Nitrogen 16 mg/dL (9-16); Calcium 8.9 mg/dL (8.4-10.2); Carbon Dioxide 25 mmol/L (22-29); Chloride 106 mmol/L (96-108); Estimated Glomerular Filt Rate > 60; Iron 95 mcg/dL (45-160); Percent Iron Saturation 38 % (15-50); Potassium 4.5 mmol/L (3.3-5.1); Sodium 137 mmol/L (135-145); Total Iron Binding Capacity 251 mcg/dL (228-428); Total Protein 7.0 g/dL (6.5-8.0); Unsaturated Iron Binding 156 ug/dL; ~Hepatitis A Antibody IgG 1.94 S/CO (0.00-0.99)
== END 2025-04-05 11:24 | disposition home or self-care (01) ==
LOC: HO.HHCL 11:23
PROVIDERS: PCP Nurse Practitioner Primary Care; Referring Provider Family Medicine; Visit Provider Nurse Practitioner Primary Care
DX: F11.20 Opioid dependence, uncomplicated (principal)
CPT/HCPCS: 36415; 80053; 83540; 85025; 86708

== ENCOUNTER 2025-04-13 11:01 | Outpatient (REF) | payer OTHER, SELFPAY ==
--- OUTSIDE RECORDS SUMMARY | 2025-04-13 11:38 | XMS_ITS | Encounter Summary ---
Author Organization [employer] Address [address] 7t [place] [address] Care Team Providers Care Indigo Vat Tender Cloth Name Role Phone Freda Lane Primary Care Provider [phone] Reason for Visit * Reason Comments Med Refill Encounter Details Date Type Department Care Team ([facility] st Contact Info) Description 09/23/2023 Refill [facility] CHC MED & PEDS [address] [place], [place] [phone] Latanya Holder MD 230 [place] [address] Uncomplicated opioid dependence (CMS/HCC) Social History Tobacco [...] Description 06/28/2025 1:30 PM EDT Clinical Support [facility] MEDICINE 230 [place] [address] Bryan Noland RN [address] [place] [address] documented as of this encounter Visit Diagnoses Diagnosis Uncomplicated opioid dependence (CMS/HCC) documented in this encounter Care Teams Indigo Vat Tender Cloth Relationship Specialty Start Date End Date Freda Lane ANP [address] [place] [address] PCP - General Family Medicine 06/03/20 documented as of this encounter
--- OUTSIDE RECORDS SUMMARY | 2025-04-13 11:38 | XMS_ITS | Clinical Summary ---
Author Organization [facility], Address [address] [place] [address] [place] [address] Phone Care Team Providers Care Cray Fishing Hand Name Role Phone Freda Lane NP Primary Care Provider [phone] Social History Tobacco Use Types Packs/Day Years [...] Vaccine (#1) 2025 Insurance [address] [place] [address] [facility] One Care Dual SNP ([id number]) [place] [id number] Care Teams Cray Fishing Hand Relationship Specialty Start Date End Date Freda Lane NP PCP - General Nurse Practitioner 10/13/23
[2025-04-13 13:53] LABS: Appearance Urine Clear; Glucose Urine UA Negative (Negative); PH 6.0 (5.0-9.0); Specific Gravity - Urine 1.020 (1.005-1.025)
[2025-04-13 14:07] LABS: MANUAL DIFF FLAG NO
[2025-04-13 14:12] LABS: Hematocrit 38.2 % (42.0-52.0); Hemoglobin 13.1 g/dl (14.0-18.0); Imm Gran Abs Auto 0.02 X10*3/uL (0.00-0.03); Imm Gran Pct Auto 0.2 % (0.0-0.4); Lymphocytes Absolute Auto 1.9 X10*3/uL (1.2-4.9); Mean Corpuscular HGB Conc 34.3 g/dl (31.0-36.0); Mean Corpuscular Hemoglobin 31.0 pg (27.0-33.0); Mean Corpuscular Volume 90.3 fL (80.0-98.0); NRBC Abs Auto 0.000 X10*3/uL (0.0-0.012); NRBC Pct Auto 0.0 /100WBC (0.0-0.2); Platelet Count 276 X10*3/uL (160-400); Red Blood Count 4.23 X10*6/uL (4.60-5.80); White Blood Count 8.3 X10*3/uL (4.8-10.8)
[2025-04-13 14:42] LABS: Anion Gap 11 (12-20); Blood Urea Nitrogen 18 mg/dL (9-16); Calcium 9.2 mg/dL (8.4-10.2); Carbon Dioxide 25 mmol/L (22-29); Chloride 106 mmol/L (96-108); Estimated Glomerular Filt Rate > 60; Iron 99 mcg/dL (45-160); Percent Iron Saturation 39 % (15-50); Potassium 4.4 mmol/L (3.3-5.1); Sodium 138 mmol/L (135-145); Total Iron Binding Capacity 254 mcg/dL (228-428); Unsaturated Iron Binding 155 ug/dL
[2025-04-13 14:49] LABS: Microalbum/Creatinine Ratio Ur 86.9 ug/mg cr (<30)
== END 2025-04-13 11:02 | disposition home or self-care (01) ==
LOC: HO.HHCL 11:01
PROVIDERS: Family Medicine; PCP Nurse Practitioner Primary Care; Visit Provider Nurse Practitioner Primary Care
DX: F11.20 Opioid dependence, uncomplicated (principal); D64.9 Anemia, unspecified; R80.9 Proteinuria, unspecified
CPT/HCPCS: 36415; 80048; 81001; 82043; 82570; 83540; 85025

== ENCOUNTER 2025-06-27 17:55 | Outpatient (REF) | payer OTHER, SELFPAY ==
--- OUTSIDE RECORDS SUMMARY | 2025-06-27 15:45 | XMS_ITS | Encounter Summary ---
Author Organization [employer] [facility] Address [address] [place] [address] [place] [address] Care Team Providers Care Tar Heater Operator Name Role Phone Freda Lane Primary Care Provider [phone] Reason for Referral * Consultation (Routine) - Pending Review Specialty Diagnoses / Procedures Referred By Aureliano gama Referred To Contact Urology Diagnoses Hematospermia Freda Lane ANP [address] [place] [address] Phone: tel: fax: Referral ID Status Reason Start Date Expiration Date Visits Requested Visits Authorized [id number] Pending Review Specialty Services Required 06/27/2025 06/27/2026 1 1 * Imaging (Routine) - Pending Review Specialty Diagnoses / Procedures Referred By Aureliano gama Referred To Contact Radiology Diagnoses Proteinuria, unspecified type Procedures US RENAL BI Freda Lane ANP [address] [place] [address] Phone: tel: fax: Referral ID Status Reason Start Date Expiration Date V isits Requested Visits Authorized [id number] Pending Review 06/27/2025 06/27/2026 1 1 Reason for Visit * Reason Comments Follow-up Encounter Details Date Type Department Care Team (Latest Contact Info) Description 06/27/2025 3:45 PM EDT Office Visit [facility] MEDICINE [address] [place] [address] ANP [address] [place] [address] Hematospermia (Primary Dx); Vitamin D deficiency; Routine screening for STI (sexually transmitted infection); Proteinuria, unspecified type; Acute left-sided low back pain without sciatica; Fatigue, unspecified type; History of hepatitis C Social History Tobacco Use Types Packs/Day Years Used Date Smoking Tobacco: Some Days Cigars Passive Smoke Exposure: Current Smokeless Tobacco: Never Tobacco Cessation:Ready to Q uit: Not Asked; Counseling Given: Not Answered Alcohol Use Standard Drinks/Week Comments Not Currently 0 (1 standard drink = 0.6 oz pur e alcohol) Depression Answer Date Recorded Patient Health Questionnaire-9 Score 6 03/15/2025 Patient Health Questionnaire-9 Score 6 03/15/2025 Last PHQ-9: Questionnaire Data Not on file 0 03/15/2025 Housing Stability Answer Date Recorded What is your housing situation today? I have hector healy 03/08/[address] you li ve. Do you have problems with any of the following? None of the above 03/08/2025 Food Insecurity Answer Date Recorded Within the past 12 months, y ou worried that your food would run out before you got money to buy more: Never True 03/08/2025 Within the past 12 months,th e food you bought just didn't last and you didn't have enough money to get more: Never True 02/2025 Transportation Answer Date Recorded In the past 12 months, has l ack of transportation kept you from medical appts, meetings, work or from getting things needed for daily living? No 03/08/2025 Utilities Answer Date Recorded In the past 12 months, has t he electric, gas, oil or water [employer] threatened to shut off services in your home? No 03/08/2025 Depression Answer Date Recorded Patient Health Questionnaire-2 Score 1 03/15/2025 Internet Access Answer Date Recorded Internet Access Q1 Yes 03/08/2025 Internet Access Q2 Not on file 03/08/2025 Sex and Gender Information Value Date Recorded Sex Assigned at Male 08/03/2022 10:21 AM EDT Legal Sex Male 10:21 AM EDT Gender Identity Male 08/03/2022 10:21 AM EDT Sexual Orientation Straight 08/03/2022 10 :21 AM EDT documented as of this encounter Last Filed Vital Signs Vital Sign Reading Time Taken Comments Blood Pressure 102/80 06/27/2025 3:51 PM EDT Pulse 88 06/27/2025 3:51 PM EDT Temperature 36.9 C (98.4 F) 06/27/2025 3:51 PM EDT Respiratory Rate 20 06/27/2025 3:51 PM EDT Oxygen Saturation - - Inhaled Oxygen Concentration - - Weight 91.6 kg (202 lb) 06/27/2025 3:51 PM EDT Height 162.6 cm (5' 4 ) 06/27/2025 3:51 PM EDT Body Mass Index 34.67 06/27/2025 3:51 PM EDT documented in this encounter Progress Notes * KINGSLEY Rosario - 06/27/2025 3:45 PM EDT Subjective Patient ID: Wenceslao Saldana is a 55 y.o. male who presents for Follow-up. HPI Here today for routine follow-up Had an episode of bloody discharge from penis after intercourse recently. Had not been sexually active in yr prior. Wants STI testing. No pain w/ ejaculation Occasionally has tugging sensation in 1 testicle. Did see urology when referred in past for hematuria work up but no note in chart so I am not entirely sure this did transpire Renal US previously ordered Albuminuria on recent UA, this is same w/ previous and at that time renal declined to see pt and recommended urology follow-up. I will again check renal US and labs as below and go from there. If needed will initiate low dose ACEi. Smokes cigars Review of Systems Constitutional: Negative for chills and fever. HENT: Negative for sore throat. Respiratory: Negative for cough and shortness of breath. Cardiovascular: Negative for chest pain. Gastrointestinal: Negative for constipation and diarrhea. Endocrine: Negative for polydipsia, polyphagia and polyuria. Genitourinary: Positive for penile discharge. Negative for difficulty urinating, dysuria, flank pain, frequency and genital sores. Psychiatric/Behavioral: The patient is nervous/anxious. Objective BP 102/80 (BP Location: Left arm, Patient Position: Sitting, BP Cuff Size: Adult) Pulse88 Temp 98.4 ??F (36.9 ??C) (Oral) Resp 20 Ht 5' 4 (1.626 m) Wt 202 lb (91.6 kg) BMI 34.67 kg/m?? Physical Exam Constitutional: General: He is not in acute distress. Appearance: Normal appearance. He is not ill-appearing. HENT: Head: Normocephalic and atraumatic. Eyes: General: No scleral icterus. Extraocular Movements: Extraocular movements intact. Pupils: Pupils are equal, round, and reactive to light. Cardiovascular: Rate and Rhythm: Normal rate and regular rhythm. Pulmonary: Effort: Pulmonary effort is normal. No accessory muscle usage or respiratory distress. Neurological: Mental Status: He is alert and oriented to person, place, and time. Psychiatric: Mood and Affect: Mood normal. Behavior: Behavior normal. Assessment/Plan Diagnoses and all orders for this visit: Hematospermia check STI work up and refer back to urology for eval - Trichomonas RNA (Urine/Vaginal) - Urinalysis with reflex microscopic Vitamin D deficiency - Vitamin D, 25-Hydroxy, Total, Immunoassay; Future Routine screening for STI (sexually transmitted infection) - Chlamydia/N. Gonorrhoeae, PCR, Urine - HIV-1/2 Antigen and Antibodies, Fourth Generation, with Reflexes; Future - Syphilis Screen; Future - Trichomonas RNA (Urine/Vaginal) Proteinuria, unspecified type Reviewed w/ pt etiology of proteinuria and need for evaluation. Ordered again: - US RENAL BI; Future Chronic left-sided low back pain without sciatica Cont w/ heat, stretching, will rec PT at follow-up Fatigue, unspecified type - Vitamin B12; Future History of hepatitis C - Hepatitis C Viral RNA, Quantitative, Real-Time PCR; Future documented in this encounter Plan of Treatment Upcoming Encounters Date Type Department Care Team (Late st Contact Info) Description 06/28/2025 1:30 PM EDT Office Visit [facility] MEDICINE [address] [place] [phone] Latanya Holder MD 230 [place] [address] 09/20/2025 1:00 PM EST Clinical Support [facility] 230 [place] [address] Bryan Noland RN 230 [place] [address] Scheduled Orders Name Type Priority Associated Diagnoses Orde r Schedule Chlamydia/N. Gonorrhoeae, PCR, Urine Lab Routine Routine screening for STI (sexually transmitted infection) Ordered: 06/27/2025 HIV-1/2 Antigen and Antibodies, Fourth Generation, with Reflexes Lab Routine Routine screening for STI (sexually transmitted infection) Expected: 06/27/2025 (Approximate), Expires: 06/27/2026 Syphilis Screen Lab Routine Routine screening for STI (sexually transmitted infection) Expected: 06/27/2025 (Approximate), Expires: 06/27/2026 Trichomonas RNA (Urine/Vaginal) Lab Routine Hematospermia Routine screening for STI (sexually transmitted infection) Ordered: 06/27/2025 US RENAL BI Imaging Routine Proteinuria, unspecified type Expected: 06/27/2025, Expires: 06/27/2026 Urinalysis with reflex microscopic Lab Routine Hematospermia Ordered: 06/27/2025 Vitamin D, 25-Hydroxy, Total, Immunoassay Lab Routine Vitamin D deficiency Expected: 06/27/2025 (Approximate), Expires: 06/27/2026 Vitamin B12 Lab Routine Fatigue, unspecified type Expected: 06/27/2025 (Approximate), Expires: 06/27/2026 Hepatitis C Viral RNA, Quantitative, Real-Time PCR Lab Routine History of hepatitis C Expected: 06/27/2025 (Approximate), Expires: 06/27/2026 Scheduled Referrals Name Type Priority Associated Diagnoses Orde r Schedule Referral to Urology Outpatient Referral Routine Hematospermia Expected: 06/27/2025 (Approximate), Expires: 06/27/2026 documented as of this encounter Goals Goal Patient Goal Type Associated Problems Recent Progress Patient-Stated? 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 RN documented as of this encounter Visit Diagnoses Diagnosis Hematospermia- Primary Vitamin D deficiency Routine screening for STI (sexually transmitted infection) Screening examination for venereal disease Proteinuria, unspecified type Acute left-sided low back pain without sciatica Fatigue, unspecified type History of hepatitis C Personal history of other infectious and parasitic disease documented in this encounter Additional Health Concerns Assessment Noted Time PHQ-9 Depression Total Score: 6 03/15/20 25 3:04 PM EDT documented as of this encounter Care Teams Tar Heater Operator Relationship Specialty Start Date End Date Freda Lane ANP 230 [place] [address] PCP - General Family Medicine 06/03/20 documented as of this encounter
--- OUTSIDE RECORDS SUMMARY | 2025-06-27 18:11 | XMS_ITS | Encounter Summary ---
Author Organization [employer] Address [address] [facility] 7t [place] [address] Care Team Providers Care Workers Compensation Specialist Name Role Phone Freda Lnae Primary Care Provider [phone] Encounter Details Date Type Department Care Team ([facility] st Contact Info) Description 06/11/2025 Results Follow-Up [facility] MEDICINE 230 [place], [place] [phone] Freda Lane, ANP 230 [place] [address] CBC auto differential, Iron And Total Iron Binding Capacity, Basic Metabolic Panel Social History Tobacco Use Types Packs/Day Years Used Date Smoking Tobacco: Some Days Cigars Passive Smoke Exposure: Current Smokeless Tobacco: Never Alcohol Use Standard Drinks/Week [...] Description 06/28/2025 1:30 PM EDT Office Visit [facility] MEDICINE [address] [place] [address] Latanya Holder MD 230 [place] [address] 09/20/2025 1:00 PM EST Clinical Support [facility] MEDICINE [address] [place] [address] Bryan Noland, RN [address] [place] [address] documented as of this encounter Goals Goal Patient Goal Type Associated Problems Recent Progress Patient-Stated? 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, RN documented as of this encounter Visit Diagnoses Not on filedocumented in this encounter Additional Health Concerns Assessment Noted Time PHQ-9 Depression Total Score: 6 03/15/20 25 3:04 PM EDT documented as of this encounter Care Teams Workers Compensation Specialist Relationship Specialty Start Date End Date Freda Lane ANP [address] [place] [address] PCP - General Family Medicine 06/03/20 documented as of this encounter
--- OUTSIDE RECORDS SUMMARY | 2025-06-27 18:11 | XMS_ITS | Encounter Summary ---
Author Organization [employer] Address [address] 7[address] [place] [address] Care Team Providers Care Master Baker Name Role Phone Freda Lane Primary Care Provider [phone] Reason for Visit * Reason Comments Med Refill Encounter Details Date Type Department Care Team ([facility] st Contact Info) Description 09/23/2023 Refill [facility] CHC MED & PEDS [address] [place], [place] [phone] Latanya Holder MD 230 [place] [address] Uncomplicated opioid dependence (CMS/HCC) Social History Tobacco [...] Description 06/28/2025 1:30 PM EDT Office Visit [facility] MEDICINE [address] [place] [phone] Latanya Holder MD [address] [place] [address] 09/20/2025 1:00 PM EST Clinical Support [address] [address] Bryan Noland, ETHAN [address] [place] [phone] documented as of this encounter Visit Diagnoses Diagnosis Uncomplicated opioid dependence (CMS/HCC) documented in this encounter Care Teams Master Baker Relationship Specialty Start Date End Date Freda Lane ANP [address] [place] [address] PCP - General Family Medicine 06/03/20 documented as of this encounter
--- OUTSIDE RECORDS SUMMARY | 2025-06-27 18:11 | XMS_ITS | Encounter Summary ---
Author Organization [employer] Address [address] [facility] 7t [place] [address] Care Team Providers Care Salesperson Burial Needs Name Role Phone Freda Lane Primary Care Provider [phone] Encounter Details Date Type Department Care Team ([facility] Contact Info) Description 08/04/2024 Orders Only [facility] [address] [place] [address] Provider, MD Fallon Social History Tobacco Use Types Packs/Day Years [...] before you got money to buy more: Sometimes True 2023 Within the past 12 months,th e food you bought just didn't last and you didn't have enough money to get more: Sometimes True 01/27/2024 Transportation Answer Date Recorded In the past [...] 1:30 PM EDT Office Visit [facility] MEDICINE [address] [place] [phone] Latanya Holder MD 230 [place] [address] 09/20/2025 1:00 PM EST Clinical Support [facility] MEDICINE [address] [place] [phone] Bryan Noland, ETHAN [address] [place] [address] documented as of this encounter Procedures Procedure Name Priority Date/Time Associated Diagnosis Comments HM COLONOSCOPY Routine 07/25/2024 10:30 AM EDT documented in this encounter Results * Hm Colonoscopy (07/25/2024 10:30 AM EDT) Historical Provider HEALTH MAINTENANCE Final Result documented in this encounter Visit Diagnoses Not on filedocumented in this encounter Care Teams Salesperson Burial Needs Relationship Specialty Start Date End Date Freda Lane ANP [address] [place] [address] PCP - General Family Medicine 06/03/20 documented as of this encounter
--- OUTSIDE RECORDS SUMMARY | 2025-06-27 18:11 | XMS_ITS | Encounter Summary ---
Author Organization [employer] Address [address] [facility] 7t [place] [address] Care Team Providers Care Head Kiln Operator Name Role Phone Freda Lane Primary Care Provider [phone] Reason for Visit * Reason Onset Date Comments chart prep 06/26/2025 Encounter Details Date Type Department Care Team ([facility] Contact Info) Description 06/26/2025 Telephone [facility] MEDICINE 230 [place], [place] [phone] Freda Lane ANP [address] [place], [place] [phone] chart prep Social History Tobacco Use Types Packs/Day Years [...] AM EDT documented as of this encounter Miscellaneous Notes * Telephone Encounter - Constanza Lawler MA - 06/26/2025 8:30 AM EDT Chart Prep Labs: done Images: not applicable Referrals: not applicable Vaccines due: Covid, Flu, and MCV4 Screenings: not applicable Overdue care gaps: Not applicable documented in this encounter Plan of Treatment Upcoming Encounters Date Type Department Care Team (Late st Contact Info) Description 06/28/2025 1:30 PM EDT Office Visit [facility] MEDICINE [address] [place] [address] Latanya Holder MD [address] [place] [address] 09/20/2025 1:00 PM EST Clinical Support [facility] MEDICINE [address] [place] [address] Bryan Noland RN [address] [place] [address] documented as of this encounter Goals Goal [...] documented as of this encounter Care Teams Head Kiln Operator Relationship Specialty Start Date End Date Freda Lane ANP [address] [place] [address] PCP - General Family Medicine 06/03/20 documented as of this encounter
--- OUTSIDE RECORDS SUMMARY | 2025-06-27 18:11 | XMS_ITS | Encounter Summary ---
Author Organization [employer] Address [address] [facility] 7t [place] [address] Care Team Providers Care Government Documents Librarian Name Role Phone Freda Lane Primary Care Provider [phone] Encounter Details Date Type Department Care Team ([facility] Contact Info) Description 08/02/2024 Orders Only [facility] [address] [place] [address] ProviderFallon MD Social History Tobacco Use Types Packs/Day Years [...] Description 06/28/2025 1:30 PM EDT Office Visit [facility] MEDICINE [address] [place] [phone] Latanya Holder MD 230 [place] [address] 09/20/2025 1:00 PM EST Clinical Support [facility] MEDICINE [address] [place] [phone] Bryan Noland, ETHAN [address] [place] [address] documented as of this encounter Procedures Procedure Name Priority Date/Time Associated Diagnosis Comments PATHOLOGY CONSULT Routine 07/31/2024 7:58 AM EDT documented in this encounter Results * Pathology Consult (07/31/2024 7:58 AM EDT) Historical Provider LAB PATHOLOGY ORDERABLES Final Result documented in this encounter Visit Diagnoses Not on filedocumented in this encounter Care Teams Government Documents Librarian Relationship Specialty Start Date End Date Freda Lane ANP [address] [place] [address] PCP - General Family Medicine 06/03/20 documented as of this encounter
--- OUTSIDE RECORDS SUMMARY | 2025-06-27 18:11 | XMS_ITS | Encounter Summary ---
Author Organization [employer] Address [address] [place] [address] Care Team Providers Care Pattern Storage Clerk Name Role Phone Freda Lane KINGSLEY Primary Care Provider [phone] Encounter Details Date Type Department Care Team (Latest Contact Info) Description 06/27/2025 Travel Social History Tobacco Use Types Packs/Day Years [...] Description 06/28/2025 1:30 PM EDT Office Visit [facility] [address] [place] [phone] Latanya Holder MD [address] [place] [phone] 09/20/2025 1:00 PM EST Clinical Support [facility] [address] [place] [phone] Bryan Noland RN [address] [place] [phone] documented as of this encounter Goals Goal [...] documented as of this encounter Care Teams Pattern Storage Clerk Relationship Specialty Start Date End Date Freda Lane ANP [address] [place] [phone] PCP - General Family Medicine 06/03/20 documented as of this encounter
--- OUTSIDE RECORDS SUMMARY | 2025-06-27 18:11 | XMS_ITS | Clinical Summary ---
Author Organization [employer] Address [address] [facility] [address] [place] [address] Care Team Providers Care Kitchen Steward/Stewardess Name Role Phone Freda Lane KINGSLEY Primary Care Provider Allergies No known active allergies Medications cholecalcifero l (Vitamin D-3) 50 MCG (1999 UT) tablet TAKE 1 TABLET BY MOUTH IN THE MORNING 90 tablet 04/23/20 23 Active loratadine (Claritin) 10 MG tablet TAKE 1 TABLET BY MOUTH EVERY DAY IN THE MORNING 90 tablet 3 06/12/20 24 Active Buprenorphine HCl-Naloxone HCl (Suboxone) 8-2 MG SL filmIndication s:Uncomplicate d opioid dependence (CMS/HCC) Place 2 Film under the tongue Once per day. 56 Film 2 06/21/20 25 025 Active Buprenorphine HCl-Naloxone HCl (Suboxone) 8-2 MG SL filmIndication s:Uncomplicate d opioid dependence (CMS/HCC) Place 2 Film under the tongue Once per day. 56 Film 2 03/26/20 25 025 Discontinued(Re order (will not trigger notification to Pharmacy)) Active Problems Problem Noted Date Diagnosed Date Smokes cigars 03/13/2024 Hematuria 03/13/2024 Overview (03/13/2024): Referred to urology, imaging previously ordered not yet obtained Vitamin D deficiency 03/09/2022 08/16/2023 Allergic rhinitis 11/09/2012 08/16/2023 Obesity 11/09/2012 08/16/2023 Hepatitis C virus infection cured after antiviral drug therapy 05/26/2012 08/16/2023 Opioid dependence 05/26/2012 08/16/2023 Asthma 06/01/2011 08/16/2023 Bipolar disorder 06/01/2011 08/16/2023 Encounters Date Type Department Care Team Description 06/27/2025 3:45 PM EDT Office Visit [address] ANP Hematospermia (Primary Dx); Vitamin D deficiency; Routine screening for STI (sexually transmitted infection); Proteinuria, unspecified type; Acute left-sided low back pain without sciatica; Fatigue, unspecified type; History of hepatitis C 06/27/2025 Travel 06/26/[address] ANP chart prep 06/20/2025 Patient Outreach [facility] [address] [place] [address] ANP Pre-visit Planning (SDOH was already completed) 06/20/[address] [address] Latanya Holder MD Uncomplicated opioid dependence (CMS/HCC) 06/11/2025 Results Follow-Up [address] ANP CBC auto differential, Iron And Total Iron Binding Capacity, Basic Metabolic Panel 04/13/2025 Results Follow-Up [address] [address] Michelle Morgan NP Urinalysis, Complete, with Reflex to Culture, Albumin, Random Urine W/Creatinine 04/13/2025 Orders Only [address] [address] Latanya Holder MD 04/05/2025 11:00 AM EDT Clinical Support [address] [address] Bryan Noland, ETHAN Uncomplicated opioid dependence (CMS/HCC) (Primary Dx) 04/05/2025 Orders Only [address] [address] Latanya Holder MD 04/05/2025 Travel 03/29/2025 Telephone [facility] [address] [place] [address] ANP Lab Orders from Last 3 Months Immunizations Immunization Administration Dates Next Due Hep B, adult 09/25/2011,01/15/2011,07/17/2010 Influenza, Split (incl. shila fied surface antigen) 11/09/2012,06/23/2012 Tdap 12/03/2016 Zoster, Recombinant 07/15/2023,05/14/2023 Social History Tobacco Use Types Packs/Day Years [...] Orientation Straight 08/03/2022 10 :21 AM EDT Last Filed Vital Signs Vital Sign Reading Time Taken Comments Blood Pressure 102/80 06/27/2025 3:51 PM EDT Pulse 88 06/27/2025 3:51 PM EDT Temperature 36.9 C (98.4 F) 06/27/2025 3:51 PM EDT Respiratory Rate 20 06/27/2025 3:51 PM EDT Oxygen Saturation 97% 05/09/2024 9:51 AM EDT Inhaled Oxygen Concentration - - Weight 91.6 kg (202 lb) 06/27/2025 3:51 PM EDT Height 162.6 cm (5' 4 ) 06/27/2025 3:51 PM EDT Body Mass Index 34.67 06/27/2025 3:51 PM EDT Plan of Treatment Upcoming Encounters Date Type Department Care Team (Late st Contact Info) Description 06/28/2025 1:30 PM EDT Office Visit [facility] [address] [place] [phone] Latanya Holder MD [address] [place] [address] 09/20/2025 1:00 PM EST Clinical Support [facility] [address] [place] [phone] Bryan Noland, ETHAN [address] [place] [address] Health Maintenance Due Date Last Done Comments CT Colonography 1969 FIT DNA/Cologuard 1969 FIT 1969 FOBT 1969 Sigmoidoscopy 1969 Hepatitis A Vaccines (1 of 2 - Risk 2-dose series) 1988 COVID-19 Vaccine ( season) 2025 12/19/2022, 10/14/2021, 02/19/2021, Additional history exists SDOH Screening 03/08/2026 03/08/2025 Alcohol/Substance Use Screening 03/15/2026 03/15/2025 Depression Screening 03/15/2026 03/15/2025, 03/15/20 Disability Screening 03/15/2026 03/15/2025 Influenza Vaccine (#1) 2026 11/09/2012, 2011 Postponed from 06/04/2025 (Patient Refused) Pneumococcal Vaccine: 50+ Years (1 of 2 - PCV) 06/27/2026 Postponed from 1988 (Patient Refused) Tobacco Screening 06/27/2026 06/27/2025 DTaP/Tdap/Td Vaccines (2 - Td or Tdap) 12/03/2026 12/03/2016 Lipid Panel 03/10/2029 03/10/2024, 01/15/2022 Colonoscopy 07/25/2031 07/25/2024 Colorectal Cancer Screening 07/25/2031 RSV Patients and Patients Aged 60 years or older (1 - 1-dose 75+ series) 2044 Hepatitis B Vaccines Completed 09/25/2011, 01/15/2011, 07/17/2010 HIV Screening Completed 01/15/2022 Zoster Vaccines Completed 07/15/2023, 05/14/2023 HIB Vaccines Aged Out No longer eligi ble based on patient's age to complete this topic HPV Vaccines Aged Out No longer eligi ble based on patient's age to complete this topic IPV Vaccines Aged Out No longer eligi ble based on patient's age to complete this topic Meningococcal B Vaccine Aged Out No l onger eligible based on patient's age to complete this topic Meningococcal Vaccine Aged Out No cheko олег eligible based on patient's age to complete this topic RSV under 20 months Aged Out No longe r eligible based on patient's age to complete this topic Rotavirus Vaccines Aged Out No longer eligible based on patient's age to complete this topic Goals Goal Patient Goal Type Associated Problems Recent Progress Patient-Stated? 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 Procedure Name Priority Date/Time Associated Diagnosis Comments ALBUMIN, RANDOM URINE W/CREATININE Routine 04/13/2025 11:05 AM EDT URINALYSIS, COMPLETE, WITH REFLEX TO CULTURE Routine 04/13/2025 11:05 AM EDT BASIC METABOLIC PANEL Routine 04/13/2025 11:05 AM EDT Proteinuria, unspecified type IRON AND TOTAL IRON BINDING CAPACITY Routine 04/13/2025 11:05 AM EDT Normocytic anemia CBC WITH AUTO DIFFERENTIAL Routine 04/13/2025 11:05 AM EDT Normocytic anemia HEPATITIS A ANTIBODY, TOTAL Routine 04/05/2025 11:38 AM EDT IRON AND TOTAL IRON BINDING CAPACITY Routine 04/05/2025 11:38 AM EDT COMPREHENSIVE METABOLIC PANEL Routine 04/05/2025 11:38 AM EDT CBC WITH AUTO DIFFERENTIAL Routine 04/05/2025 11:38 AM EDT POCT RALPH-14 URINE DRUG SCREEN Routine 04/05/2025 10:59 AM EDT Uncomplicated opioid dependence (CMS/HCC) HM COLONOSCOPY Routine 07/25/2024 10:30 AM EDT LIPID PANEL, STANDARD Routine 03/10/2024 11:14 AM EDT Elevated LDL cholesterol level HIV 1/2 ANTIGEN/ANTIBODY, FOURTH GENERATION W/RFL Routine 01/15/2022 11:36 AM EDT from Last 3 Months or Most Recently Relevant to Health Maintenance Results * Urinalysis, Complete, with Reflex to Culture (04/13/2025 11:05 AM EDT) Color Urine Yellow [facility] Appearance Urine Clear [facility] PH 6.0 5.0 - 9.0 [facility] Glucose Urine UA Negative Negative mg/dL [facility] Urine Blood Negative Negative [facility] Specific [place] - Urine 1.020 1.005 - 1.025 [facility] Urine Protein Trace Neg-Trace mg/dL [facility] Urine Ketones Negative Negative mg/dL [facility] Nitrite Urine Negative Negative [facility] Leukocyte Esterase Urine Negative Negative [facility] RBC Urine 0-2 0 - 2 /HPF [facility] Urine WBC 0-5 0 - 5 /HPF [facility] Urine Squamous Epithelial Cell 0-2 0 - 2 /HPF [facility] Urine Bacteria None Seen None Seen [facility] Hyaline Casts, Urine 0-2 0 - 2 /LPF [facility] 04/13/2025 11:0 5 AM EDT 04/13/2025 1:38 PM EDT Narrative [facility] - 04/13/2025 1:58 PM EDT Urine, Clean Catch Latanya Holder MD LAB URINE ORDERABLES Final R esult Performing Organization Address City/[facility]/ZIP Co de Phone Number [facility] [address] [place] [phone] * (ABNORMAL) Albumin, Random Urine W/Creatinine (04/13/2025 11:05 AM EDT) Creatinine, Urine 100.02 mg/dL [facility] Microalbumin Urine 87.0 mg/L [facility] Microalbum Creatinine Ratio Ur 86.9(H) <30 ug/mg cr [facility] Comment:Albumin/Creatinine R atio Reference Ranges: Normal: < 30 ug/mg creatinine Microalbuminuria: 30 - 300 ug/mg creatinineClinical Albuminuria: > 300 ug/mg creatinine 04/13/2025 11:0 5 AM EDT 04/13/2025 1:38 PM EDT us Latanya Holder MD LAB URINE ORDERABLES Final R esult Performing Organization Address City/[facility]/ZIP Co de Phone Number [facility] [address] [place] [phone] * (ABNORMAL) CBC auto differential (04/13/2025 11:05 AM EDT) Only the most recent of2 resultswithin the time period is included. White Blood Count 8.3 4.8 - 10.8 X10*3/uL [facility] Red Blood Count 4.23(L) 4.60 - 5.80 X10*6/uL [facility] Hemoglobin 13.1(L) 14.0 - 18.0 g/dl [facility] Hematocrit 38.2(L) 42.0 - 52.0 % [facility] Mean Corpuscular Volume 90.3 80.0 - 98.0 fL [facility] Mean Corpuscular Hemoglobin 31.0 27.0 - 33.0 pg [facility] Mean Corpuscular HGB Conc 34.3 31.0 - 36.0 g/dl [facility] Red Cell Distribution Width 13.2 11.0 - 16.0 % [facility] Platelet Count 276 160 - 400 X10*3/uL [facility] Mean Platelet Volume 10.0 9.4 - 12.4 fL [facility] Neutrophils Percent Auto 70.3 45 - 73 % [facility] Imm Gran Pct Auto 0.2 0.0 - 0.4 % [facility] Lymphocytes Percent Auto 23.3 20 - 40 % [facility] Monocytes Percent Auto 4.6 2 - 11 % [facility] Eosinophils Percent Auto 1.1 0 - 4 % [facility] Basophils Percent Auto 0.5 0 - 2 % [facility] NRBC Pct Auto 0.0 0.0 - 0.2 /100WBC [facility] Neutrophils Absolute Auto 5.8 2.0 - 8.3 x10*3/uL [facility] Imm Gran Abs Auto 0.02 0.00 - 0.03 X10*3/uL [facility] Lymphocytes Absolute Auto 1.9 1.2 - 4.9 X10*3/uL [facility] Monocytes Absolute Auto 0.4 0.1 - 1.2 X10*3/uL [facility] Eosinophils Absolute Auto 0.1 0.0 - 0.4 X10*3/uL [facility] Basophils Absolute Auto 0.0 0.0 - 0.2 X10*3/uL [facility] NRBC Abs Auto 0.000 0.0 - 0.012 X10*3/uL [facility] Blood Venous blood specimen / Unknown 04/13/2025 11:05 AM EDT 04/13/2025 2:00 PM EDT Freda [facility] LAB BLOOD ORDERABLES Final Resul t Performing Organization Address [facility] de Phone Number [facility] [address] [place] [phone] * Iron And Total Iron Binding Capacity (04/13/2025 11:05 AM EDT) Only the most recent of2 resultswithin the time period is included. Iron 99 45 - 160 mcg/dL [facility] Total Iron Binding Capacity 254 228 - 428 mcg/dL [facility] Percent Iron Saturation 39 15 - 50 % [facility] Unsaturated Iron Binding 155 ug/dL [facility] Blood Venous blood specimen / Unknown 04/13/2025 11:05 AM EDT 04/13/2025 2:[address] [facility] LAB BLOOD ORDERABLES Final Resul t Performing Organization Address [facility] de Phone Number [facility] [address] [place] [phone] * (ABNORMAL) Basic Metabolic Panel (04/13/2025 11:05 AM EDT) Sodium 138 135 - 145 mmol/L [facility] Potassium 4.4 3.3 - 5.1 mmol/L [facility] Chloride 106 96 - 108 mmol/L [facility] Carbon Dioxide 25 22 - 29 mmol/L [facility] Anion Gap 11(L) 12 - 20 [facility] Urea Nitrogen (BUN) 18(H) 9 - 16 mg/dL [facility] Creatinine, Serum 0.90 0.5 - 1.4 mg/dL [facility] Estimated Glomerular Filt Rate >60 [facility] Comment:Chronic Kidney Disea se: Estimated GFR < 60 mL/min/1.59w5Swmgsa Kidney Disease: Estimated GFR < 15 mL/min/1.73m2 Glucose 93 60 - 115 mg/dL [facility] Calcium 9.2 8.4 - 10.2 mg/dL [facility] Blood Venous blood specimen / Unknown 04/13/2025 11:05 AM EDT 04/13/2025 2:00 PM EDT Freda WYNN LAB BLOOD ORDERABLES Final Resul t Performing Organization Address [facility] Co de Phone Number [facility] [address] [place] [phone] * Hepatitis A Antibody, Total (04/05/2025 11:38 AM EDT) Hepatitis A Antibody IgG REACTIVE Nonreactive [facility] Comment:The presence of IgG anti-HAV implies past HAV infection(recent or distant) or vaccination against HAV. 04/05/2025 11:3 8 AM EDT 04/05/2025 1:13 PM EDT Latanya Holder MD LAB BLOOD ORDERABLES Final R esult Performing Organization Address [facility] Co de Phone Number [facility] [address] [place] [phone] * (ABNORMAL) Comprehensive Metabolic Panel (04/05/2025 11:38 AM EDT) Sodium 137 135 - 145 mmol/L [facility] Potassium 4.5 3.3 - 5.1 mmol/L [facility] Chloride 106 96 - 108 mmol/L [facility] Carbon Dioxide 25 22 - 29 mmol/L [facility] Anion Gap 11(L) 12 - 20 [facility] Urea Nitrogen (BUN) 16 9 - 16 mg/dL [facility] Creatinine, Serum 0.90 0.5 - 1.4 mg/dL [facility] Estimated Glomerular Filt Rate >60 [facility] Comment:Chronic Kidney Disea se: Estimated GFR < 60 mL/min/1.94l6Dnwhar Kidney Disease: Estimated GFR < 15 mL/min/1.73m2 Glucose 100 60 - 115 mg/dL [facility] Calcium 8.9 8.4 - 10.2 mg/dL [facility] Bilirubin, Total 0.4 0.0 - 1.0 mg/dL [facility] Aspartate Amino Transferase 38(H) 5 - 37 U/L [facility] Alanine Aminotransferase 31 0 - 40 U/L [facility] Total Protein 7.0 6.5 - 8.0 g/dL [facility] Albumin Level 4.7 3.5 - 5.0 g/dL [facility] Alkaline Phosphatase 56 39 - 117 U/L [facility] 04/05/2025 11:3 8 AM EDT 04/05/2025 1:13 PM EDT Latanya Holder MD LAB BLOOD ORDERABLES Final R esult [facility] [address] [place] [phone] * (ABNORMAL) POCT RALPH-14 Urine Drug Screen (04/05/2025 10:59 AM EDT) THC Positive(A) Negative Cocaine Screen, Urine Negative Negative Opiate Screen, Urine Negative Negative Methamphetamine Screen Urine Negative Negative Amphetamine Screen, Urine Negative Negative Benzodiazepines Screen, Urine Negative Negative Barbiturate Screen, Urine Negative Negative Methadone Screen, Urine Negative Negative Buprenophine Screen, Urine Positive(A) Negative TCA, Urine Negative Negative MDMA Urine Negative Negative ng/mL Oxycodone Screen, Urine Negative Negative Phencyclidine (PCP), Urine Negative Negative Fentanyl, Urine Negative Negative Urine Urine specimen obtained by clean catch procedure / Unknown 04/05/2025 10:59 AM EDT Heriberto Ocampo MD POINT OF CARE TEST ENTER/EDIT OR DERABLES Final Result * Hm Colonoscopy (07/25/2024 10:30 AM EDT) Historical Provider HEALTH MAINTENANCE Final Result * (ABNORMAL) Lipid Panel, Standard (03/10/2024 11:14 AM EDT) Triglycerides 95 <150 mg/dL [facility] Comment:Desirable Triglyceri de: less than 150 mg/dLBorderline High Triglyceride 150-199 mg/dLHigh Triglyceride: 200-499 mg/dLVery High Triglyceride: greater than or equal to 5OO mg/dL Cholesterol 187 <200 mg/dL [facility] Comment:Desirable Cholestero l: less than 200 mg/dLBorderline High Cholesterol: 200-239 mg/dLHigh Cholesterol: greater than 239 mg/dL LDL Cholesterol Calculated 109(H) <100 mg/dL [facility] Comment:Desirable LDL: less than 100 mg/dLNear Optimal/Above Optimal LDL: 110- 129 mg/dLBorderline High LDL: 130-159 mg/dLHigh LDL: 160-189 mg/dLVery High LDL: greater than or equal to 190 mg/dL HDL Cholesterol 59 >40 mg/dL [facility] Comment:Desirable HDL: great er than 40 mg/dL Note: This HDL assay may give artificially low results in patients with liver disease. Blood Venous blood specimen / Unknown 03/10/2024 11:14 AM EDT 03/10/2024 1:00 PM EDT Freda WYNN LAB BLOOD ORDERABLES Final Resul t [facility] [address] [place] [phone] * HIV 1/2 ANTIGEN/ANTIBODY,FOURTH GENERATION W/RFL (01/15/2022 11:36 AM EDT) HIV-1/2 ANTIGEN AND ANTIBODIES, 4TH GENERATION W/ REFLEX NON-REACT BERNARDO NON-REACT BERNARDO [facility] Comment: HIV-1 antigen and HIV-1/HIV-2 antibodies were not detected. There is no laboratory evidence of HIV infection. PLEASE NOTE: This information has been disclosed to you from records whose confidentiality may be protected by state law. If your state requires such protection, then the state law prohibits you from making any further disclosure of the information without the specific written consent of the person to whom it pertains, or as otherwise permitted by law. A general authorization for the release of medical or other information is NOT sufficient for this purpose. For additional information please refer to http://education.Gaopeng/faq/WWJ980 (This link is being provided for informational/ educational purposes only.) The performance of this assay has not been clinically validated in patients less than 2 years old. 01/15/2022 11:3 6 AM EDT [facility] LAB BLOOD ORDERABLES Final Resul t [facility] [address] from Last 3 Months or Most Recently Relevant to Health Maintenance Insurance [facility] < 64 [address] [id number] Care Teams Kitchen Steward/Stewardess Relationship Specialty Start Date End Date Freda Lane ANP [address] [place] [phone] PCP - General Family Medicine 06/03/20
[2025-06-27 18:28] LABS: Appearance Urine Clear; Glucose Urine UA Negative (Negative); PH 5.5 (5.0-9.0); Specific Gravity - Urine 1.025 (1.005-1.025); UMIC TRIGGER UACC YES
[2025-06-28 05:08] LABS: CT PCR Urine NOT DETECTED (Not Detect.); NG PCR Urine NOT DETECTED (Not Detect.)
== END 2025-06-27 17:56 | disposition home or self-care (01) ==
LOC: HO.HHCLNP 17:55
PROVIDERS: Visit Provider Nurse Practitioner Primary Care
DX: R36.1 Hematospermia (principal); Z20.2 Contact with and (suspected) exposure to infections with a predominantly sexual mode of transmission
CPT/HCPCS: 81001; 87491; 87591; 87661

== ENCOUNTER 2025-07-11 16:07 | Outpatient (REF) | payer OTHER, SELFPAY ==
--- NOTE | ~2025-07-11 | XR_ITS ---
EXAMINATION: XR ELBOW, LEFT CLINICAL INFORMATION: chronic L elbow pain, ?h/o dislocation COMPARISON: 09/14/2023 TECHNIQUE: AP, lateral, and oblique views of the left elbow. FINDINGS: There is increasing soft tissue ossification lateral to the elbow joint. There is a small enthesophyte involving medial humeral epicondyle. There are osteophytes involving the ulnohumeral and radiohumeral joint spaces similar to the prior. No displaced fat pads are present. XR/XR elbow LT min 3V IMPRESSION: Stable moderate degenerative changes. Increasing soft tissue ossification along the radial side of the joint could be related to enthesopathy, diffuse idiopathic skeletal hyperostosis (DISH), or remote soft tissue injury. Electronically signed by: Gabino Duarte MD 07/11/2025 04:33 PM EDT
== END 2025-07-11 16:08 | disposition home or self-care (01) ==
LOC: HO.HHCX 16:07
PROVIDERS: Visit Provider Nurse Practitioner Primary Care
DX: M25.522 Pain in left elbow (principal)
CPT/HCPCS: 73080

== ENCOUNTER → 2025-07-11 16:08 | Outpatient (BNV) | payer OTHER, SELFPAY | PROVIDERS: Visit Provider Radiology Diagnostic Radiology | DX: M19.022 Primary osteoarthritis, left elbow (principal) | CPT/HCPCS: 73080 ==